=== PATIENT | female | born 1975 | race Two or more races ===

== ENCOUNTER → 2017-06-02 | Emergency (ER) | payer MEDICARE, MEDICAID ==
[~2017-06-02] VITALS: Ht 165.1 cm; Wt 63.5 kg
[~2017-06-02] MED LIST: Acetaminophen 500mg (ES) tab ORAL ONE
[2017-06-02 17:12] VITALS: BP 134/90
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
[2017-06-02 18:23] VITALS: BP 134/90
== END | disposition left against medical advice (07) ==
LOC: EDBD 17:05 → EMR 18:00
DX: S09.92XA Unspecified injury of nose, initial encounter (principal); Y04.2XXA Assault by strike against or bumped into by another person, initial encounter; Y92.9 Unspecified place or not applicable; R04.0 Epistaxis
CPT/HCPCS: 99282